=== PATIENT | male | born 1940 ===

== ENCOUNTER 2024-04-07 16:55 | Emergency (ER) | payer MEDICARE, OTHER, SELFPAY ==
[2024-04-07 17:03] VITALS: BP 157/78
--- NOTE | 2024-04-07 19:37 | ED.GENMED ---
History of Present Illness
General
Chief Complaint: Breathing Problem
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
Exam Limitations: none
Time Seen by Provider: 04/07/24 18:18
Nursing documentation reviewed up to this point in time: agreed with
History of Present Illness
History of Present Illness:
The patient is an 83-year-old man with a past medical history of A-fib on Xarelto who reports that 11 days ago, he tripped over his carpet and fell into a chair. Patient reports that he hit the chair with his chest. He did not hit his head.
Patient reports that he also hit his right knee. Patient reports diffuse chest soreness, especially along the left rib cage. Additionally, patient has noticed increased bruising of the right knee With swelling of the entire right lower leg.
Patient is worried he could have a blood clot in his right leg. Patient reports that the pain in the chest is making him feel short of breath. Patient denies cough and fever. He denies a history of PE and DVT.
Past History
Past History
ED Past Medical History: Arrthythmia, CAD, HTN and Hypercholesterolemia
ED Past Surgical History: Cardiac and Cholecystectomy
Social History
Tobacco: Non-smoker
Alcohol: None
Drug: None
Personal:
Living: with family
Employment: Other
Family History
Family History: Other
Review of Systems
Review of Systems
Allergies reviewed?: Yes
Other source history: other ([employer]roll [employer])
All Other Systems: ROS reviewed and negative except as documented in HPI and ROS
Constitutional: Reports no symptoms
EENT: Reports no symptoms
Respiratory: Reports trouble breathing
Cardiac: Reports chest pain
ABD/GI: Reports no symptoms
: Reports no symptoms
Musculoskeletal: Reports no symptoms
Skin: Reports no symptoms
Neurological: Reports no symptoms
Endocrine: Reports no symptoms
Hematologic/Lymphatic: Reports no symptoms
Psychiatric: Reports no symptoms
Phy Exam
Physical Exam
Physical Exam:
Physical Exam
General: no apparent distress, not acutely ill, atraumatic appearing face and head
Neck: supple. no meningeal signs. normal psoterior pharynx. Nontender C-spine
Heart: s1/s2 regular rate and rhythm, no murmur. equal radial pulses. Mild diffuse anterior chest wall tenderness with mild ecchymoses of lower left anterior chest wall
Lungs: no acute respiratory distress. clear bilaterally
Abdomen: normal bowel sounds. not tender. no CVAT
Neuro: alert and oriented. no focal neurological deficits
Skin: no rash
Psychiatric: well kept. interactive and cooperative
Extremities: Ecchymotic and swollen right anterior knee with 1+ pitting edema of right lower extremity including ankle and foot. Negative Homans' sign. No swelling of left lower extremity.
Scores
Heart Failure Risk
Heart Failure Risk Score: Not Applicable
Course
Orders/Labs/Results
Orders:
Orders
04/07/24 17:06
ECG [Electrocardiogram (*1)] Urgent
Reason for Study: Shortness of Breath
EKG- Treatment ONCE
CR Ribs-left 3 Vw W/pa Chest Urgent
Comment:
Reason For Exam: injury
04/07/24 19:38
Knee, Right 4 or More Views [CR Knee- Right 4 Or More View*] Urgent
Comment:
Reason For Exam: swelling
04/07/24 20:15
US Legs, Right [US Periph Venous LOWER Ext RT] Urgent
Comment:
Reason For Exam: RLE swelling
04/07/24 20:33
Complete Blood Count/With Diff Urgent
Comprehensive Metabolic Panel Urgent
Troponin I Urgent
04/07/24 21:52
Tramadol HCl [Ultram] 50 mg PO NOW STA
Abnormal Lab Results
04/07/24
20:33
RBC 4.38 L 10^6/uL
(4.70-6.10)
MCH 31.5 H pg
(27.0-31.0)
MPV 10.5 H fL
(7.4-10.4)
Absolute Monos (auto) 0.8 H 10^3/uL
(0.1-0.6)
Monocytes % 9.8 H %
(1.7-9.3)
Glucose 109 H mg/dl
(70-99)
04/07/24 20:33
04/07/24 20:33
Vital Signs
Initial and Last Documented VS:
Initial Vital Signs
Temp Pulse Resp BP Pulse Ox
98.6 F 60 18 157/78 96
04/07/24 17:03 04/07/24 17:03 04/07/24 17:03 04/07/24 17:03 04/07/24 17:03
Last Documented Vital Signs
Temp Pulse Resp BP Pulse Ox
98.6 F 60 19 139/80 94
04/07/24 17:03 04/07/24 21:45 04/07/24 21:45 04/07/24 21:21 04/07/24 21:45
MDM/Problems Addressed
Differential Diagnosis Includes:
Rib fractures, chest wall contusion, pneumonia, right patella fracture
MDM/Problems Addressed:
Patient presents with acute chest pain, shortness of breath and right knee pain after a fall from 11 days ago
Chronic conditions affecting care:
Given patient has a history of A-fib and is on a blood thinner, he is at increased risk of traumatic bleeding
Chronic conditions affecting care: Arrhythmia
Acute Exacerbation and/or Progression of Chronic Illness:
Patient is acutely hypertensive. This is likely due to pain and anxiety
Acute Exacerbation and/or Progression of Chronic Illness: HTN
*Radiology
Radiology exam reviewed: preliminary read by ED provider (Chest x-ray read by me. No pneumothorax. No acute disease. Knee x-ray reviewed by me. No fracture seen of right knee) and radiology read reviewed
*Pulse Oximetry
Patient hypoxic: no
*EKG
Interpreted by ED Provider?: Yes
Interpretation: abnormal
Comparison EKG: no changes
Rate: normal
Rhythm: ventricular paced
[place]: right axis deviation
Interval: normal interval
QRS Pattern: wide non-specific
Ischemia: non-specific ST changes
*Oxygen Equipment Technician Interpretation
Rate: normal
Interpretation: normal
Rhythm: sinus
*Critical Care Note
Total Time (30-74mins, 75-104mins- exclusive of procedures): Not Applicable
Data Reviewed
Review of Other/Old Records Reveals: Discharge Summary (Discharge summary reviewed from 10/2023 when patient was admitted for pacemaker dysfunction)
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
Patient Management
Social determinants of health affecting care: Living situation and Strong social support
Update Note
Update Note:
Patient has been resting comfortably for hours without tachypnea, tachycardia, or hypoxia. There is no sign of any intra-abdominal injury. He is hemodynamically stable. I do not think his chest pain represents acute coronary syndrome, rather, I
believe this is all chest wall contusion from the blunt trauma from 11 days ago.
ED Attending Note
-
Portions of this chart may have been created with voice recognition software.� Occasional wrong word or��sound alike� substitutions may have occurred due to the inherent limitations of voice recognition software.
Discharge Plan
Departure
Patient Disposition: Home (Routine Discharge)
Date of Disposition: 04/07/24
Time of Disposition: 22:34
Patient with high blood pressure during this ER visit?: Yes
Condition: Good
Covid-19: Not Applicable
Discharge Problem:
Chest wall contusion, Contusion of knee, right
Instructions: Blunt Chest Trauma ED, BLOOD PRESSURE, Contusion
Prescriptions:
New
tramadol 50 mg tablet
50 mg PO BID PRN (Reason: Pain) Qty: 7 0RF
No Action
lisinopril-hydrochlorothiazide 20-12.5 mg tablet
1 tab PO DAILY
famotidine 40 mg tablet
40 mg PO HS
cyanocobalamin (vitamin B-12) [Vitamin B-12] 1,000 mcg tablet
1,000 mcg PO DAILY
clopidogrel 75 mg tablet
75 mg PO DAILY
amlodipine 5 mg tablet
5 mg PO QPM
tamsulosin 0.4 mg capsule
0.4 mg PO QPM
carboxymethylcellulose sodium [Refresh Tears] 0.5 % drops
1 drp BOTH EYES BID
pantoprazole 40 mg tablet,delayed release (DR/EC)
40 mg PO DAILY
folic acid 1 mg tablet
1 mg PO DAILY@1400
montelukast 10 mg tablet
10 mg PO HS
azelastine 137 mcg (0.1 %) aerosol,spray
1 spray INTRANASAL BID
fluticasone propionate 50 mcg/actuation spray,suspension
1 spray INTRANASAL HS
metformin 500 mg tablet extended release 24 hr
500 mg PO QPM
Hold Instructions: Resume on 10/31/23.
eplerenone 50 mg tablet
50 mg PO DAILY
dutasteride 0.5 mg capsule
0.5 mg PO DAILY
cyclosporine 0.05 % dropperette
1 drp BOTH EYES BID
rosuvastatin 20 mg tablet
20 mg PO HS
levocetirizine 5 mg tablet
5 mg PO QPM
cholecalciferol (vitamin D3) 50 mcg (2,000 unit) tablet
50 mcg PO DAILY
Creon 24,000-76,000 -120,000 unit capsule,delayed release(DR/EC)
1 cap PO MEALS
Xarelto 15 mg tablet
15 mg PO QPM
Referrals:
Frandy Coronado MD [Family Provider] -
Activity Restrictions/Additional Instructions:
Return with any fever, heavy cough, or worsening shortness of breath
Apply ice to your right knee several times a day and keep your right leg elevated to help with the swelling.
Interventions
Interventions:
*Risk Screen - Suicide Last Done: 04/07/24 17:03
*General Assessment Last Done: 04/07/24 17:03
*Neglect/Abuse Screening Last Done: 04/07/24 17:03
ED- Fall Risk Assessment Last Done: 04/07/24 19:00
ED- Cardiac Assessment Last Done: 04/07/24 19:00
ED- Pulmonary Assessment Last Done: 04/07/24 19:00
Discharge Date and Time
Print Language: Slovak
[2024-04-07 20:31] VITALS: BP 155/74
[2024-04-07 20:40] LABS: % Basophils 0.5 % (0-2); % Eosinophils 3.7 % (0-6); % Immature Granulocytes 0.4 % (0-0.5); % Lymphocytes 23.6 % (20.5-51.1); % Monocytes 9.8 % (1.7-9.3); Absolute Eosinophils 0.3 10^3/uL (0-0.7); Absolute Lymphocytes 1.9 10^3/uL (1.2-3.4); Absolute Monocytes 0.8 10^3/uL (0.1-0.6); Hematocrit 40.6 % (39.0-52.0); Hemoglobin 13.8 g/dL (13.0-18.0); Mean Corpuscular Hgb 31.5 pg (27.0-31.0); Mean Corpuscular Volume 92.7 fL (80.0-94.0); Mean Platelet Volume 10.5 fL (7.4-10.4); Nucleated Red Blood Cells % 0 % (-); Platelet Count 211 10^3/uL (130-400); Red Blood Cell Count 4.38 10^6/uL (4.70-6.10); Red Cell Dist. Width 13.2 % (11.5-14.5); White Blood Cell Count 8.1 10^3/uL (4.8-10.8)
[2024-04-07 20:55] LABS: ALT (SGPT) 21 U/L (0-50); AST (SGOT) 29 U/L (17-59); Albumin 4.5 g/dl (3.5-5.0); Alkaline Phosphatase 88 U/L (38-126); Blood Urea Nitrogen 18 mg/dl (9-20); Calcium 9.8 mg/dl (8.4-10.2); Carbon Dioxide 27 mmol/L (22-30); Chloride 105 mmol/L (98-107); Glucose 109 mg/dl (70-99); Potassium 4.4 mmol/L (3.5-5.1); Sodium 141 mmol/L (135-145); Total Bilirubin 1.2 mg/dl (0.2-1.3); Total Protein 7.4 g/dl (6.3-8.2); eGFR > 60.00
[2024-04-07 21:09] LABS: Troponin I < 0.012 ng/ml
[2024-04-07 21:21] VITALS: BP 139/80
[2024-04-07] MEDS: ULTRAM 50 MG PO (21:56)
[2024-04-07 22:00] VITALS: BP 136/85
== END 2024-04-07 22:52 | disposition home or self-care (01) ==
LOC: EMR 16:55
PROVIDERS: EMERGENCY PHYSICIAN Emergency Medicine; FAMILY PHYSICIAN Internal Medicine
DX: R07.89 Other chest pain (principal); I48.91 Unspecified atrial fibrillation; I25.10 Atherosclerotic heart disease of native coronary artery without angina pectoris; I10 Essential (primary) hypertension; E78.00 Pure hypercholesterolemia, unspecified; R06.02 Shortness of breath; R60.0 Localized edema; S20.219A Contusion of unspecified front wall of thorax, initial encounter; S80.01XA Contusion of right knee, initial encounter; S80.11XA Contusion of right lower leg, initial encounter; W22.03XA Walked into furniture, initial encounter; Z79.01 Long term (current) use of anticoagulants
CPT/HCPCS: 71101; 73564; 80053; 84484; 85025; 93005; 93971; 99283